=== PATIENT | female | born 2005 | race African-American/Black ===

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

== ENCOUNTER 2024-03-19 22:24 | Emergency (ER) | payer OTHER, SELFPAY ==
[2024-03-21 03:32] LABS: SARS-CoV-2 N1 Positive; SARS-CoV-2 N2 Positive; SARS-CoV-2 RNAse P1 Positive
== END 2024-03-19 23:46 | disposition home or self-care (01) ==
LOC: MADERS 22:24
DX: B34.9 Viral infection, unspecified (principal)
CPT/HCPCS: 87635; 87804; 99283

== ENCOUNTER 2025-03-30 15:55 | Emergency (ER) | payer OTHER ==
[2025-03-30 17:48] LABS: Glucose, Urine (Dipstick) Negative (Negative); Leukocyte Moderate (Negative); Protein, Urine (Dipstick) Trace mg/dL (Neg-Trace); Specific Gravity, Urine 1.025 (1.005-1.030)
[2025-03-30 17:53] LABS: RBC/HPF None Seen HPF (0-3)
[2025-03-30 17:54] LABS: Bacteria/HPF 2+ HPF (None Seen); CAUTI Indications for Culture Pregnancy; Urine Culture Reflex Yes Yes; WBC/HPF 21-50 HPF (0-3)
[2025-03-30] MEDS ORDERED: Cephalexin 500 MG CAP ONE (18:04)
== END 2025-03-30 18:14 | disposition home or self-care (01) ==
LOC: MADERS 15:55
DX: N39.0 Urinary tract infection, site not specified (principal); E86.0 Dehydration; J06.9 Acute upper respiratory infection, unspecified
CPT/HCPCS: 81001; 87086; 87426; 94760; 99283; J7030

== ENCOUNTER 2025-04-13 23:25 | Emergency (ER) | payer OTHER ==
[2025-04-13 23:55] LABS: #Basophils 0.1 thou/uL (0.0-0.2); #Eosinophils 0.1 thou/uL (0.0-0.7); #Lymphocytes 2.0 thou/uL (1.20-3.40); #Monocytes 0.5 thou/uL (0.11-0.59); #Neutrophils 4.0 thou/uL (1.40-6.50); %Basophils 1.5 % (0.0-1.0); %Eosinophils 0.8 % (0.0-10.0); %Lymphocytes 29.4 % (21.0-51.0); %Monocytes 8.0 % (0.0-10.0); %Neutrophils 60.3 % (42.0-75.0); Hematocrit 35.1 % (36.0-47.0); Hemoglobin 11.4 g/dL (12.0-16.0); Mean Corpuscular Hemoglobin 29.1 pg (27.0-31.0); Mean Corpuscular Volume 89.9 fl (78.0-98.0); Platelet Count 327 10x3/uL (130-400); Red Blood Cell (RBC) Count 3.91 mill/uL (4.20-5.40); White Blood Cell (WBC) Count 6.7 10x3/uL (4.8-10.8)
[2025-04-13 23:58] LABS: Glucose, Urine (Dipstick) Negative (Negative); Leukocyte Negative (Negative); Protein, Urine (Dipstick) Negative (Neg-Trace); Specific Gravity, Urine 1.020 (1.005-1.030)
[2025-04-14 00:01] LABS: Bacteria/HPF Rare-Few HPF (None Seen); CAUTI Indications for Culture Pregnancy; RBC/HPF 0-3 HPF (0-3); Urine Culture Reflex Yes Yes
[2025-04-14 00:13] LABS: ALT (SGPT) 17 U/L (Less than 34); AST (SGOT) 27 U/L (11-34); Albumin 2.8 g/dL (3.1-4.5); Alkaline Phosphatase 170 U/L (40-110); Anion Gap 16 mmol/L (10-20); BUN (Urea Nitrogen) 4 mg/dL (7.0-18.7); Bilirubin, Total 0.2 mg/dL (0.3-1.2); Calc. Creatinine Clearance 0 mL/min (70-130); Calcium 9.2 mg/dL (7.8-10.44); Carbon Dioxide 18 mmol/L (22-29); Chloride 108 mmol/L (98-107); Globulin 4.2 g/dL (2.4-3.5); Glucose 112 mg/dL (70-105); Potassium 3.5 mmol/L (3.5-5.1); Sodium 138 mmol/L (136-145)
== END 2025-04-14 00:43 | disposition home or self-care (01) ==
LOC: MADERS 23:25
DX: I10 Essential (primary) hypertension (principal)
CPT/HCPCS: 36415; 80053; 81001; 85025; 87086; 99284

== ENCOUNTER 2025-06-19 18:40 | Emergency (ER) | payer OTHER | END 2025-06-19 19:11 | disposition home or self-care (01) | LOC: MADERS 18:40 | DX: I10 Essential (primary) hypertension (principal) | CPT/HCPCS: 99283 ==